=== PATIENT | female | born 1965 | race Two or more races ===

== ENCOUNTER 2018-10-06 10:33 | Outpatient (CLI) | payer OTHER | END 2018-10-06 11:01 | disposition home or self-care (01) | LOC: MAMO-SONO 10:33 | DX: R93.5 Abnormal findings on diagnostic imaging of other abdominal regions, including retroperitoneum (principal); Z01.419 Encounter for gynecological examination (general) (routine) without abnormal findings; Z79.890 Hormone replacement therapy; Z78.0 Asymptomatic menopausal state; Z12.31 Encounter for screening mammogram for malignant neoplasm of breast; N64.4 Mastodynia ==

== ENCOUNTER 2019-05-12 08:18 | Outpatient (CLI) | payer OTHER | END 2019-05-12 08:20 | disposition home or self-care (01) | LOC: SONOGRAMA 08:18 | DX: R10.30 Lower abdominal pain, unspecified (principal); R94.5 Abnormal results of liver function studies ==

== ENCOUNTER → 2019-07-15 | Outpatient (CLI) | payer OTHER | END | disposition home or self-care (01) | LOC: RAD 10:31 | DX: I10 Essential (primary) hypertension (principal) ==